=== PATIENT | male | born 1930 | race African-American/Black ===

== ENCOUNTER 2018-02-06 17:41 | Emergency (ER) | payer OTHER, MEDICAID, MEDICARE ==
[~2018-02-06] VITALS: Ht 160 cm; Wt 62.0 kg
[2018-02-06] MEDS ORDERED: SODIUM CHLORIDE 0.9% 1,000 ML IV ONE (18:04)
[2018-02-06] MEDS ORDERED: KETOROLAC 30MG/ML VIAL IV STA (18:04)
[2018-02-06 20:51] LABS: HEMATOCRIT. 40.4 % (42.0-52.0); MEAN CORPUSCULAR HEMOGLOBIN 29.8 pg (28.0-32.0); MEAN CORPUSCULAR VOLUME 92.2 fL (80.0-94.0); MEAN PLATELET VOLUME 10.5 fl (7.4-10.4); PLATELET 177 x1000/uL (130-400); RED BLOOD CELL COUNT 4.38 mill/uL (4.7-6.1); RED CELL DISTRIBUTION WIDTH 14.6 % (11.6-14.6)
[2018-02-06 20:52] LABS: CLARITY URINE CLEAR (CLEAR); COLOR URINE YELLOW (YELLOW); KETONES URINE NEGATIVE (NEGATIVE); LEUKOCYTE ESTERASE URINE TRACE (NEGATIVE); NITRITE URINE NEGATIVE (NEGATIVE); OCCULT BLOOD URINE NEGATIVE (NEGATIVE); PH URINE 5.5 (4.5-8.0); PROTEIN URINE NEGATIVE (NEGATIVE); SPECIFIC GRAVITY URINE 1.019 (1.005-1.030)
[2018-02-06 20:54] LABS: CHLORIDE 103 mEq/L (98-107)
[2018-02-06 20:56] LABS: INR 1.1
[2018-02-06 21:54] LABS: PLATELET ESTIMATE NORMAL
[2018-02-06 22:45] VITALS: BP 164/89
== END 2018-02-06 23:22 | disposition home or self-care (01) ==
LOC: ER 17:41
DX: K43.9 Ventral hernia without obstruction or gangrene (principal); K40.90 Unilateral inguinal hernia, without obstruction or gangrene, not specified as recurrent; E11.9 Type 2 diabetes mellitus without complications; D72.829 Elevated white blood cell count, unspecified; J45.909 Unspecified asthma, uncomplicated
CPT/HCPCS: 36415; 74176; 80053; 81003; 83690; 85025; 85610; 96374; 99284; J1885; J7030

== ENCOUNTER 2018-03-14 22:51 | Inpatient (IN) | payer OTHER, MEDICAID ==
[~2018-03-14] VITALS: Ht 170.2 cm; Wt 56.7 kg
[2018-03-14] MEDS ORDERED: ONDANSETRON HCL 4MG/2ML INJ IV STA (23:55)
[2018-03-14] MEDS ORDERED: SODIUM CHLORIDE 0.9% 1,000 ML IV ONE (23:55)
[2018-03-15] MEDS ORDERED: MORPHINE SULFATE 10 MG/ML CPJ IV ONE
[2018-03-15 00:48] LABS: BASOPHILS % 0.7 % (0.0-2.0); EOSINOPHILS % 1.5 % (0.0-5.0); HEMATOCRIT. 38.2 % (42.0-52.0); HEMOGLOBIN. 12.5 g/dL (14.0-18.0); LYMPHOCYTES % 11.9 % (20.0-50.0); MEAN CORPUSCULAR HEMOGLOBIN 30.2 pg (28.0-32.0); MEAN CORPUSCULAR VOLUME 91.9 fL (80.0-94.0); MEAN PLATELET VOLUME 10.9 fl (7.4-10.4); MONOCYTES % 11.4 % (2.0-8.0); NEUTROPHILS % 74.5 % (40.0-76.0); PLATELET 176 x1000/uL (130-400); RED BLOOD CELL COUNT 4.15 mill/uL (4.7-6.1); RED CELL DISTRIBUTION WIDTH 13.9 % (11.6-14.6)
[2018-03-15 00:50] LABS: INR 1.1
[2018-03-15 00:52] LABS: CHLORIDE 101 mEq/L (98-107)
[2018-03-15] MEDS ORDERED: IOHEXOL-300 100 ML BOTTLE ONE (03:29)
[2018-03-15] MEDS ORDERED: SODIUM CHLORIDE 0.9% 1,000 ML IV SCH (10:59)
[2018-03-15] MEDS ORDERED: LORAZEPAM 2MG/ML CPJ IV PRN ×2 (11:00→23:15)
[2018-03-15] MEDS ORDERED: HYDROCODONE/ACETAMINOPHEN 5/325MG TABLET PO PRN ×2 (11:00→23:15)
[2018-03-15] MEDS ORDERED: MORPHINE SULFATE 4 MG/ML CPJ (NOT FOR IM USE) IV PRN ×2 (11:00→23:15)
[2018-03-15] MEDS ORDERED: ACETAMINOPHEN 325MG TABLET PO PRN ×2 (11:00→23:15)
[2018-03-15 18:34] LABS: CREATINE KINASE 74 IU/L (39-308)
[2018-03-15 18:35] LABS: CREATINE KINASE MB FRACTION 2.4 ng/mL (0.5-3.6)
[2018-03-15 21:00] VITALS: BP 170/79
[2018-03-15 21:22] VITALS: BP 170/79
[2018-03-15] MEDS ORDERED: IPRATROPIUM/ALBUTEROL 0.5-3(2.5)MG/3ML NEB INH PRN (23:15)
[2018-03-15] MEDS ORDERED: ONDANSETRON HCL 4MG/2ML INJ IV PRN (23:15)
[2018-03-15] MEDS ORDERED: CLONIDINE 0.1MG TABLET PO PRN (23:15)
[2018-03-15 23:42] LABS: CREATINE KINASE 83 IU/L (39-308)
[2018-03-15 23:43] LABS: CREATINE KINASE MB FRACTION 2.5 ng/mL (0.5-3.6)
[2018-03-15] MEDS: LISINOPRIL 20MG TABLET PO SCH (23:55)
[2018-03-16] VITALS (7 sets, daily range): BP systolic 104–194; BP diastolic 70–89
[2018-03-16] MEDS: LACTULOSE 20G/30ML UDC PO SCH ×2 (06:45→13:16)
[2018-03-16] MEDS: LISINOPRIL 20MG TABLET PO SCH (08:49)
[2018-03-16] MEDS ORDERED: FOLIC ACID 1MG TABLET PO SCH (09:00)
[2018-03-16] MEDS ORDERED: ASPIRIN 81MG EC TABLET PO SCH (09:00)
[2018-03-16] MEDS ORDERED: AMLODIPINE 5MG TABLET PO SCH (09:00)
[2018-03-16] MEDS ORDERED: ENOXAPARIN 40MG/0.4ML SYR SUBCUT SCH (09:00)
[2018-03-16] MEDS ORDERED: LOSA100T14 MT (11:45)
[2018-03-16] MEDS ORDERED: ATEN100T MT (11:45)
[2018-03-16] MEDS ORDERED: TAMS0.4C31 MT (11:46)
[2018-03-16] MEDS ORDERED: FURO40TA5 MT (11:52)
[2018-03-16] MEDS ORDERED: OMEP20CA10 MT (11:52)
[2018-03-16] MEDS ORDERED: ALBU90AE INH (11:52)
[2018-03-16 15:51] LABS: HEMATOCRIT. 39.7 % (42.0-52.0); HEMOGLOBIN. 12.9 g/dL (14.0-18.0); MEAN CORPUSCULAR HEMOGLOBIN 30.2 pg (28.0-32.0); MEAN CORPUSCULAR VOLUME 92.7 fL (80.0-94.0); MEAN PLATELET VOLUME 11.1 fl (7.4-10.4); PLATELET 163 x1000/uL (130-400); RED BLOOD CELL COUNT 4.28 mill/uL (4.7-6.1); RED CELL DISTRIBUTION WIDTH 13.8 % (11.6-14.6)
[2018-03-16 15:55] LABS: CHLORIDE 106 mEq/L (98-107)
[2018-03-16 16:27] LABS: PLATELET ESTIMATE NORMAL
[2018-03-17] MEDS ORDERED: LISINOPRIL 20MG TABLET PO SCH (09:00)
== END 2018-03-16 18:49 | disposition home or self-care (01) | DRG 394 ==
LOC: ER 22:51 → 5WST 03-15 02:53 → EDBEDREQTM 03-15 02:54 → EDBEDREQ 03-15 02:54 → SUPCPDRO 03-15 10:58 → ENRESERV 03-15 19:33
PROVIDERS: ADMIT Internal Medicine Nephrology; ATTEND Internal Medicine Nephrology
DX: K40.90 Unilateral inguinal hernia, without obstruction or gangrene, not specified as recurrent (principal); Z68.1 Body mass index [BMI] 19.9 or less, adult; D64.9 Anemia, unspecified; I10 Essential (primary) hypertension; K59.00 Constipation, unspecified; E11.9 Type 2 diabetes mellitus without complications; I25.2 Old myocardial infarction
CPT/HCPCS: 36415; 71045; 74177; 80048; 82550; 82553; 82962; 83605; 84153; 84484; 93005; 93306; 96374; 96375; 97162; 99284; 99285; J1650; J2060; J2270; J2405; J7030; Q9967; G0103

== ENCOUNTER 2018-09-24 02:41 | Inpatient (IN) | payer OTHER, MEDICAID ==
[~2018-09-24] VITALS: Ht 170.2 cm; Wt 58.6 kg
[2018-09-24] VITALS (8 sets, daily range): BP systolic 114–169; BP diastolic 56–91
[~2018-09-24 02:41] MED LIST: ALBU90AE INH; ATEN100T MT; FURO40TA5 MT; LOSA100T32 MT; OMEP20CA5 MT; TAMS0.4C31 MT
[2018-09-24] MEDS ORDERED: METHYLPREDNISOLONE SOD SUCC 125 MG/2 ML VIAL IV STA (02:46)
[2018-09-24] MEDS ORDERED: IPRATROPIUM BROMIDE (0.02%) 0.5MG/2.5ML NEB HHN STA (02:46)
[2018-09-24] MEDS ORDERED: ALBUTEROL (0.083%) 2.5MG/3ML NEB HHN STA (02:46)
[2018-09-24] MEDS ORDERED: SODIUM CHLORIDE 0.9% 1,000 ML IV ONE (02:46)
[2018-09-24 03:02] LABS: EOSINOPHILS % 4.7 % (0.0-5.0); HEMOGLOBIN. 13.4 g/dL (14.0-18.0); LYMPHOCYTES % 21.9 % (20.0-50.0); MEAN CORPUSCULAR HEMOGLOBIN 30.4 pg (28.0-32.0); MEAN CORPUSCULAR VOLUME 92.7 fL (80.0-94.0); MONOCYTES % 12.9 % (2.0-8.0); NEUTROPHILS % 59.5 % (40.0-76.0); PLATELET 183 x1000/uL (130-400); RED BLOOD CELL COUNT 4.42 mill/uL (4.7-6.1); RED CELL DISTRIBUTION WIDTH 14.5 % (11.6-14.6)
[2018-09-24 03:09] LABS: CHLORIDE 104 mEq/L (98-107)
[2018-09-24] MEDS ORDERED: TRAMADOL 50MG TABLET PO PRN (06:30)
[2018-09-24] MEDS ORDERED: NITROGLYCERIN 0.4MG TABLET SL SL PRN (06:30)
[2018-09-24] MEDS ORDERED: ONDANSETRON HCL 4MG/2ML INJ IV PRN (06:30)
[2018-09-24] MEDS ORDERED: GUAIFENESIN 200MG/10ML SUGAR FREE UDC PO PRN (06:30)
[2018-09-24] MEDS ORDERED: CLONIDINE 0.1MG TABLET PO PRN (06:30)
[2018-09-24] MEDS ORDERED: IPRATROPIUM/ALBUTEROL 0.5-3(2.5)MG/3ML NEB INH PRN (06:30)
[2018-09-24] MEDS ORDERED: MAGNESIUM/ALUMINUM HYDROXIDE/SIMETHICONE 30ML UDC PO PRN (06:30)
[2018-09-24] MEDS ORDERED: ACETAMINOPHEN 325MG TABLET PO PRN (06:30)
[2018-09-24 07:15] LABS: TOTAL IRON BINDING CAPACITY 214 ug/dL (250-450)
[2018-09-24] MEDS: ASPIRIN 325MG EC TABLET PO SCH (10:00)
[2018-09-24] MEDS: AMLODIPINE 10MG TABLET PO SCH (10:00)
[2018-09-24] MEDS: GUAIFENESIN/DM 600MG/30MG ER TAB 12HR PO SCH ×2 (10:00→20:25)
[2018-09-24] MEDS: LISINOPRIL 20MG TABLET PO SCH ×2 (10:00→20:35)
[2018-09-24] MEDS: ASCORBIC ACID 500 MG TABLET PO SCH ×2 (10:01→20:35)
[2018-09-24] MEDS: FAMOTIDINE 20MG TABLET PO SCH (10:01)
[2018-09-24] MEDS: ENOXAPARIN 40MG/0.4ML SYR SUBCUT SCH (10:03)
[2018-09-24] MEDS ORDERED: LEVOFLOXACIN 500MG PREMIX 100 ML IV SCH (11:00)
[2018-09-24 11:05] LABS: BG BASE EXCESS 2.6 mmol/L (-2.0-2.0); BG BILEVEL POS AIRWAY PRESSURE ST=15/5; BG CARBOXYHEMOGLOBIN 0.4 % (0.5-1.5); BG DEOXYHEMOGLOBIN 1.1 % (0.0-5.0); BG FRACTION INSPIRED OXYGEN 40; BG HCO3 ACT 30.8 mmol/L (22.0-26.0); BG METHEMOGLOBIN 0.3 % (0.0-1.5); BG OXYGEN SATURATION 98.9 % (92.0-98.5); BG OXYHEMOGLOBIN 98.2 % (94.0-97.0); BG PCO2 65.1 mmHg (35.0-45.0); BG PH 7.293 (7.350-7.450); BG PO2 171.2 mmHg (75.0-100.0); BG PRESSURE SUPPORT 10; BG SAMPLE SITE LEFT BRACHIAL; BG TOTAL HEMOGLOBIN 13.2 g/dL (12.0-18.0); BG VENT MODE MASK - BIPAP; BG VENT RATE 14 set
[2018-09-24] MEDS: METHYLPREDNISOLONE SOD SUCC 125 MG/2 ML VIAL IV SCH ×2 (14:08→22:29)
[2018-09-24 15:37] LABS: BG BASE EXCESS 1.6 mmol/L (-2.0-2.0); BG BILEVEL POS AIRWAY PRESSURE 15/5; BG CARBOXYHEMOGLOBIN 0.9 % (0.5-1.5); BG DEOXYHEMOGLOBIN 0.9 % (0.0-5.0); BG HCO3 ACT 30.1 mmol/L (22.0-26.0); BG METHEMOGLOBIN 0.4 % (0.0-1.5); BG OXYGEN SATURATION 99.1 % (92.0-98.5); BG OXYHEMOGLOBIN 97.8 % (94.0-97.0); BG PCO2 65.7 mmHg (35.0-45.0); BG PH 7.279 (7.350-7.450); BG PO2 186.8 mmHg (75.0-100.0); BG SAMPLE SITE RIGHT RADIAL; BG TOTAL HEMOGLOBIN 13.8 g/dL (12.0-18.0); BG VENT MODE MASK - BIPAP; BG VENT RATE 14 set
[2018-09-24 16:02] LABS: CREATINE KINASE 111 IU/L (39-308)
[2018-09-24 16:03] LABS: CREATINE KINASE MB FRACTION 2.5 ng/mL (0.5-3.6)
[2018-09-24] MEDS: IPRATROPIUM/ALBUTEROL 0.5-3(2.5)MG/3ML NEB HHN SCH (20:45)
[2018-09-24] MEDS ORDERED: ZOLPIDEM TARTRATE 5MG TABLET PO PRN (21:00)
[2018-09-25] VITALS (17 sets, daily range): BP systolic 96–143; BP diastolic 35–76
[2018-09-25] MEDS: IPRATROPIUM/ALBUTEROL 0.5-3(2.5)MG/3ML NEB HHN SCH ×6 (00:21→21:20)
[2018-09-25 00:39] LABS: CREATINE KINASE 83 IU/L (39-308)
[2018-09-25 00:40] LABS: CREATINE KINASE MB FRACTION 2.1 ng/mL (0.5-3.6)
[2018-09-25] MEDS: METHYLPREDNISOLONE SOD SUCC 125 MG/2 ML VIAL IV SCH ×3 (05:38→21:42)
[2018-09-25 08:42] LABS: BG BASE EXCESS 2.4 mmol/L (-2.0-2.0); BG BILEVEL POS AIRWAY PRESSURE 18/5; BG CARBOXYHEMOGLOBIN 0.8 % (0.5-1.5); BG DEOXYHEMOGLOBIN 0.9 % (0.0-5.0); BG FRACTION INSPIRED OXYGEN 40; BG HCO3 ACT 31.5 mmol/L (22.0-26.0); BG METHEMOGLOBIN 0.2 % (0.0-1.5); BG OXYGEN SATURATION 99.1 % (92.0-98.5); BG OXYHEMOGLOBIN 98.1 % (94.0-97.0); BG PCO2 71.1 mmHg (35.0-45.0); BG PH 7.264 (7.350-7.450); BG PO2 175.1 mmHg (75.0-100.0); BG SAMPLE SITE RIGHT RADIAL; BG TOTAL HEMOGLOBIN 13.6 g/dL (12.0-18.0); BG VENT MODE MASK - BIPAP; BG VENT RATE 16 set
[2018-09-25] MEDS: ASPIRIN 325MG EC TABLET PO SCH (08:55)
[2018-09-25] MEDS: ASCORBIC ACID 500 MG TABLET PO SCH ×2 (08:55→21:42)
[2018-09-25] MEDS: FAMOTIDINE 20MG TABLET PO SCH (08:55)
[2018-09-25] MEDS: AMLODIPINE 10MG TABLET PO SCH (08:55)
[2018-09-25] MEDS: LISINOPRIL 20MG TABLET PO SCH ×2 (08:55→21:00)
[2018-09-25] MEDS: GUAIFENESIN/DM 600MG/30MG ER TAB 12HR PO SCH ×2 (08:55→21:42)
[2018-09-25] MEDS: ENOXAPARIN 40MG/0.4ML SYR SUBCUT SCH (08:56)
[2018-09-25] MEDS: LEVOFLOXACIN 250MG PREMIX 50 ML IV SCH (10:55)
[2018-09-25] MEDS ORDERED: DEXTROSE 50% WATER 50ML SYRINGE IV PRN (13:45)
[2018-09-25] MEDS: BLOOD SUGAR DIAGNOSTIC STRIP TEST SCH ×2 (17:30→21:47)
[2018-09-25] MEDS: INSULIN LISPRO 100 UNITS/ML SUBCUT SCH ×2 (18:00→22:49)
[2018-09-25 21:19] LABS: BG BASE EXCESS 1.8 mmol/L (-2.0-2.0); BG BILEVEL POS AIRWAY PRESSURE 18/5; BG CARBOXYHEMOGLOBIN 0.1 % (0.5-1.5); BG DEOXYHEMOGLOBIN 3.2 % (0.0-5.0); BG FRACTION INSPIRED OXYGEN 30; BG HCO3 ACT 30.1 mmol/L (22.0-26.0); BG METHEMOGLOBIN 0.5 % (0.0-1.5); BG OXYGEN SATURATION 96.8 % (92.0-98.5); BG OXYHEMOGLOBIN 96.2 % (94.0-97.0); BG PCO2 65.9 mmHg (35.0-45.0); BG PH 7.278 (7.350-7.450); BG PO2 95.4 mmHg (75.0-100.0); BG SAMPLE SITE RIGHT RADIAL; BG TOTAL HEMOGLOBIN 12.6 g/dL (12.0-18.0); BG VENT MODE MASK - BIPAP
[2018-09-26] VITALS (15 sets, daily range): BP systolic 107–136; BP diastolic 42–71
[2018-09-26] MEDS: IPRATROPIUM/ALBUTEROL 0.5-3(2.5)MG/3ML NEB HHN SCH ×6 (00:19→20:23)
[2018-09-26] MEDS: METHYLPREDNISOLONE SOD SUCC 125 MG/2 ML VIAL IV SCH ×3 (05:36→21:14)
[2018-09-26] MEDS: BLOOD SUGAR DIAGNOSTIC STRIP TEST SCH ×4 (07:30→21:15)
[2018-09-26] MEDS: INSULIN LISPRO 100 UNITS/ML SUBCUT SCH ×4 (08:00→21:49)
[2018-09-26] MEDS: FAMOTIDINE 20MG TABLET PO SCH (09:11)
[2018-09-26] MEDS: GUAIFENESIN/DM 600MG/30MG ER TAB 12HR PO SCH ×2 (09:11→21:14)
[2018-09-26] MEDS: ASPIRIN 325MG EC TABLET PO SCH (09:11)
[2018-09-26] MEDS: ENOXAPARIN 40MG/0.4ML SYR SUBCUT SCH (09:11)
[2018-09-26] MEDS: ASCORBIC ACID 500 MG TABLET PO SCH ×2 (09:11→21:13)
[2018-09-26] MEDS: AMLODIPINE 10MG TABLET PO SCH (09:11)
[2018-09-26] MEDS: LISINOPRIL 20MG TABLET PO SCH ×2 (09:12→21:14)
[2018-09-26 10:45] LABS: BG BASE EXCESS 2.2 mmol/L (-2.0-2.0); BG CARBOXYHEMOGLOBIN 0.2 % (0.5-1.5); BG DEOXYHEMOGLOBIN 1.7 % (0.0-5.0); BG FRACTION INSPIRED OXYGEN 32; BG HCO3 ACT 30.6 mmol/L (22.0-26.0); BG METHEMOGLOBIN 0.4 % (0.0-1.5); BG OXYGEN SATURATION 98.3 % (92.0-98.5); BG OXYHEMOGLOBIN 97.7 % (94.0-97.0); BG PH 7.284 (7.350-7.450); BG PO2 131.6 mmHg (75.0-100.0); BG SAMPLE SITE RIGHT RADIAL; BG TOTAL HEMOGLOBIN 13.3 g/dL (12.0-18.0); BG VENT MODE NASAL CANNULA
[2018-09-26] MEDS: LEVOFLOXACIN 250MG PREMIX 50 ML IV SCH (11:58)
[2018-09-26] MEDS ORDERED: OMEP20CA5 MT (15:18)
[2018-09-26] MEDS ORDERED: AMLO5TAB88 MT (15:18)
[2018-09-26] MEDS ORDERED: LOSA100T32 MT (15:18)
[2018-09-26] MEDS ORDERED: FURO40TA5 MT (15:18)
[2018-09-26] MEDS ORDERED: ATEN100T MT (15:18)
[2018-09-27] VITALS (12 sets, daily range): BP systolic 101–162; BP diastolic 36–85
[2018-09-27] MEDS: IPRATROPIUM/ALBUTEROL 0.5-3(2.5)MG/3ML NEB HHN SCH ×6 (00:05→20:08)
[2018-09-27] MEDS: METHYLPREDNISOLONE SOD SUCC 125 MG/2 ML VIAL IV SCH ×2 (06:22→14:16)
[2018-09-27] MEDS: BLOOD SUGAR DIAGNOSTIC STRIP TEST SCH ×4 (07:30→21:14)
[2018-09-27] MEDS: INSULIN LISPRO 100 UNITS/ML SUBCUT SCH ×4 (08:00→21:15)
[2018-09-27 08:59] LABS: BG BASE EXCESS 6.8 mmol/L (-2.0-2.0); BG BILEVEL POS AIRWAY PRESSURE ST=18/5; BG CARBOXYHEMOGLOBIN 0.4 % (0.5-1.5); BG DEOXYHEMOGLOBIN 3.6 % (0.0-5.0); BG FRACTION INSPIRED OXYGEN 28; BG HCO3 ACT 35.2 mmol/L (22.0-26.0); BG METHEMOGLOBIN 0.2 % (0.0-1.5); BG OXYGEN SATURATION 96.4 % (92.0-98.5); BG OXYHEMOGLOBIN 95.8 % (94.0-97.0); BG PCO2 69.8 mmHg (35.0-45.0); BG PH 7.321 (7.350-7.450); BG PO2 87.9 mmHg (75.0-100.0); BG PRESSURE SUPPORT 13; BG SAMPLE SITE LEFT BRACHIAL; BG TOTAL HEMOGLOBIN 13.4 g/dL (12.0-18.0); BG VENT MODE MASK - BIPAP; BG VENT RATE 16 set
[2018-09-27] MEDS: AMLODIPINE 10MG TABLET PO SCH (09:00)
[2018-09-27] MEDS: LISINOPRIL 20MG TABLET PO SCH ×2 (09:00→21:00)
[2018-09-27] MEDS: ASPIRIN 325MG EC TABLET PO SCH (09:10)
[2018-09-27] MEDS: GUAIFENESIN/DM 600MG/30MG ER TAB 12HR PO SCH ×2 (09:10→21:14)
[2018-09-27] MEDS: FAMOTIDINE 20MG TABLET PO SCH (09:11)
[2018-09-27] MEDS: ASCORBIC ACID 500 MG TABLET PO SCH ×2 (09:11→21:14)
[2018-09-27] MEDS: ENOXAPARIN 40MG/0.4ML SYR SUBCUT SCH (09:54)
[2018-09-27] MEDS: LEVOFLOXACIN 250MG TABLET PO SCH (11:54)
[2018-09-27 16:07] LABS: HEMATOCRIT. 40.7 % (42.0-52.0); HEMOGLOBIN. 12.9 g/dL (14.0-18.0); MEAN CORPUSCULAR HEMOGLOBIN 29.9 pg (28.0-32.0); MEAN CORPUSCULAR VOLUME 94.1 fL (80.0-94.0); MEAN PLATELET VOLUME 11.1 fl (7.4-10.4); PLATELET 194 x1000/uL (130-400); RED BLOOD CELL COUNT 4.32 mill/uL (4.7-6.1); RED CELL DISTRIBUTION WIDTH 14.3 % (11.6-14.6)
[2018-09-27 16:08] LABS: CHLORIDE 103 mEq/L (98-107)
[2018-09-27] MEDS ORDERED: TERBUTALINE SULFATE 1MG/ML VIAL SUBCUT NR (16:15)
[2018-09-27 16:38] LABS: PLATELET ESTIMATE NORMAL
[2018-09-27 17:16] LABS: *AMPHETAMINES SCREEN URINE NEGATIVE (NEGATIVE); *BARBITURATES SCREEN URINE NEGATIVE (NEGATIVE); *BENZODIAZEPINES SCREEN URINE NEGATIVE (NEGATIVE); *COCAINE SCREEN URINE NEGATIVE (NEGATIVE)
[2018-09-27 17:17] LABS: CANNABINOID URINE SCREEN NEGATIVE (NEGATIVE); METHADONE URINE SCREEN NEGATIVE (NEGATIVE); OPIATES URINE SCREEN NEGATIVE (NEGATIVE); PHENCYCLIDINE URINE SCREEN NEGATIVE (NEGATIVE)
[2018-09-27] MEDS: METHYLPREDNISOLONE SOD SUCC 40 MG/ML VIAL IV SCH (21:14)
[2018-09-28] VITALS (11 sets, daily range): BP systolic 109–140; BP diastolic 49–62
[2018-09-28] MEDS: IPRATROPIUM/ALBUTEROL 0.5-3(2.5)MG/3ML NEB HHN SCH ×4 (00:43→16:34)
[2018-09-28] MEDS: METHYLPREDNISOLONE SOD SUCC 40 MG/ML VIAL IV SCH (06:31)
[2018-09-28] MEDS: INSULIN LISPRO 100 UNITS/ML SUBCUT SCH ×3 (08:00→18:25)
[2018-09-28 08:01] LABS: BG BASE EXCESS 5.8 mmol/L (-2.0-2.0); BG BILEVEL POS AIRWAY PRESSURE ST=20/5; BG CARBOXYHEMOGLOBIN 0.6 % (0.5-1.5); BG DEOXYHEMOGLOBIN 2.1 % (0.0-5.0); BG FRACTION INSPIRED OXYGEN 28; BG HCO3 ACT 33.1 mmol/L (22.0-26.0); BG METHEMOGLOBIN 0.3 % (0.0-1.5); BG OXYGEN SATURATION 97.9 % (92.0-98.5); BG PO2 102.7 mmHg (75.0-100.0); BG PRESSURE SUPPORT 15; BG SAMPLE SITE LEFT BRACHIAL; BG VENT MODE MASK - BIPAP; BG VENT RATE 18 set
[2018-09-28] MEDS: BLOOD SUGAR DIAGNOSTIC STRIP TEST SCH ×3 (08:02→18:24)
[2018-09-28] MEDS: ASCORBIC ACID 500 MG TABLET PO SCH (08:40)
[2018-09-28] MEDS: ASPIRIN 325MG EC TABLET PO SCH (08:40)
[2018-09-28] MEDS: AMLODIPINE 10MG TABLET PO SCH (08:40)
[2018-09-28] MEDS: FAMOTIDINE 20MG TABLET PO SCH (08:40)
[2018-09-28] MEDS: GUAIFENESIN/DM 600MG/30MG ER TAB 12HR PO SCH (08:40)
[2018-09-28] MEDS: LISINOPRIL 20MG TABLET PO SCH (08:41)
[2018-09-28] MEDS: LEVOFLOXACIN 250MG TABLET PO SCH (10:23)
[2018-09-28] MEDS: ENOXAPARIN 40MG/0.4ML SYR SUBCUT SCH (10:24)
[2018-09-29] MEDS ORDERED: PREDNISONE 20MG TABLET PO SCH (08:00)
== END 2018-09-28 19:28 | disposition home health service (06) | DRG 189 ==
LOC: ER 03:08 → 5EST 03:50 → SUPCPDRO 06:20 → ENRESERV 07:03
PROVIDERS: ADMIT Internal Medicine; ATTEND Internal Medicine
PROC: 5A09457 Assistance with Respiratory Ventilation, 24-96 Consecutive Hours, Continuous Positive Airway Pressure (ICD-10-PCS; principal; 2018-09-24)
PROC: 5A09357 Assistance with Respiratory Ventilation, Less than 24 Consecutive Hours, Continuous Positive Airway Pressure (ICD-10-PCS; 2018-09-25)
DX: J96.02 Acute respiratory failure with hypercapnia (principal); E43 Unspecified severe protein-calorie malnutrition; J44.1 Chronic obstructive pulmonary disease with (acute) exacerbation; E87.2 Acidosis; N40.0 Benign prostatic hyperplasia without lower urinary tract symptoms; I10 Essential (primary) hypertension; E11.9 Type 2 diabetes mellitus without complications; D63.8 Anemia in other chronic diseases classified elsewhere; Z68.20 Body mass index [BMI] 20.0-20.9, adult; Z79.899 Other long term (current) drug therapy; Z87.891 Personal history of nicotine dependence; Z79.51 Long term (current) use of inhaled steroids
CPT/HCPCS: 36415; 36600; 71045; 78582; 80048; 80061; 80305; 82375; 82550; 82553; 82607; 82746; 82805; 82962; 83036; 83540; 83550; 83605; 83880; 84484; 85379; 93005; 93970; 94640; 94660; 96374; 97110; 97116; 97162; 97166; 97530; 97535; 99291; A9558; J1650; J1815; J1956; J2920; J2930; J3105; J7030; J7611; J7620

== ENCOUNTER 2018-10-09 23:31 | Inpatient (IN) | payer OTHER, MEDICAID ==
[~2018-10-09] VITALS: Ht 167.6 cm; Wt 59.4 kg
[~2018-10-09 23:31] MED LIST changes: +AMLO5TAB88 MT
[2018-10-10 00:17] LABS: HEMATOCRIT. 34.1 % (42.0-52.0); HEMOGLOBIN. 11.2 g/dL (14.0-18.0); MEAN CORPUSCULAR HEMOGLOBIN 30.5 pg (28.0-32.0); MEAN CORPUSCULAR VOLUME 93.1 fL (80.0-94.0); MEAN PLATELET VOLUME 8.5 fl (7.4-10.4); PLATELET 243 x1000/uL (130-400); RED BLOOD CELL COUNT 3.67 mill/uL (4.7-6.1); RED CELL DISTRIBUTION WIDTH 14.1 % (11.6-14.6)
[2018-10-10 00:23] LABS: CHLORIDE 105 mEq/L (98-107)
[2018-10-10 00:31] LABS: BG BILEVEL POS AIRWAY PRESSURE 15/5; BG CARBOXYHEMOGLOBIN 0.7 % (0.5-1.5); BG DEOXYHEMOGLOBIN 1.1 % (0.0-5.0); BG FRACTION INSPIRED OXYGEN 70; BG HCO3 ACT 26.9 mmol/L (22.0-26.0); BG METHEMOGLOBIN 0.4 % (0.0-1.5); BG OXYGEN SATURATION 98.9 % (92.0-98.5); BG OXYHEMOGLOBIN 97.8 % (94.0-97.0); BG PCO2 61.1 mmHg (35.0-45.0); BG PH 7.261 (7.350-7.450); BG PO2 156.6 mmHg (75.0-100.0); BG SAMPLE SITE RIGHT RADIAL; BG TOTAL HEMOGLOBIN 11.1 g/dL (12.0-18.0); BG VENT MODE MASK - BIPAP
[2018-10-10] MEDS ORDERED: ALBUTEROL (0.083%) 2.5MG/3ML NEB HHN STA (02:56)
[2018-10-10] MEDS ORDERED: IPRATROPIUM BROMIDE (0.02%) 0.5MG/2.5ML NEB HHN STA (02:56)
[2018-10-10] MEDS ORDERED: METHYLPREDNISOLONE SOD SUCC 125 MG/2 ML VIAL IV STA (02:56)
[2018-10-10] MEDS ORDERED: POTASSIUM CHLORIDE 20MEQ TABLET SR PO SCH (03:00)
[2018-10-10 04:17] LABS: PLATELET ESTIMATE NORMAL
[2018-10-10] MEDS ORDERED: GUAIFENESIN 200MG/10ML SUGAR FREE UDC PO PRN (09:00)
[2018-10-10] MEDS: IPRATROPIUM/ALBUTEROL 0.5-3(2.5)MG/3ML NEB HHN SCH ×2 (09:00→13:04)
[2018-10-10] MEDS ORDERED: DIPHENHYDRAMINE 50MG/ML VIAL IV PRN (09:00)
[2018-10-10] MEDS ORDERED: IPRATROPIUM/ALBUTEROL 0.5-3(2.5)MG/3ML NEB HHN PRN (09:00)
[2018-10-10] MEDS ORDERED: ACETAMINOPHEN 650MG/20.3ML UDC GT PRN (09:00)
[2018-10-10] MEDS ORDERED: NA PHOS,M-B/NA PHOS,DI-BA ENEMA 118ML PR PRN (09:00)
[2018-10-10] MEDS ORDERED: ACETAMINOPHEN 325MG TABLET PO PRN (09:00)
[2018-10-10] MEDS ORDERED: ONDANSETRON HCL 4MG/2ML INJ IV PRN (09:00)
[2018-10-10] MEDS ORDERED: ACETAMINOPHEN 650MG SUPP PR PRN (09:00)
[2018-10-10] MEDS ORDERED: CLONIDINE 0.1MG TABLET PO PRN (09:00)
[2018-10-10] MEDS ORDERED: MAGNESIUM/ALUMINUM HYDROXIDE/SIMETHICONE 30ML UDC PO PRN (09:00)
[2018-10-10] MEDS ORDERED: DOCUSATE SODIUM 100MG CAPSULE PO PRN (09:00)
[2018-10-10] MEDS ORDERED: HYDROCODONE/ACETAMINOPHEN 5/325MG TABLET PO PRN (09:00)
[2018-10-10] MEDS ORDERED: DEXTROSE 50% WATER 50ML SYRINGE IV PRN (09:00)
[2018-10-10] MEDS: ENOXAPARIN 40MG/0.4ML SYR SUBCUT SCH (09:46)
[2018-10-10] MEDS: BLOOD SUGAR DIAGNOSTIC STRIP TEST SCH ×2 (09:46→13:47)
[2018-10-10] MEDS: METHYLPREDNISOLONE SOD SUCC 125 MG/2 ML VIAL IV SCH ×2 (09:47→15:00)
[2018-10-10] MEDS ORDERED: IPRATROPIUM/ALBUTEROL 0.5-3(2.5)MG/3ML NEB ONE (13:03)
[2018-10-10] MEDS: INSULIN LISPRO 100 UNITS/ML SUBCUT SCH ×2 (13:20→21:00)
[2018-10-10] MEDS: SODIUM CHLORIDE 0.9% INJ 3ML FLUSH IVF SCH (14:00)
[2018-10-10 21:35] VITALS: BP 146/62
[2018-10-10 22:00] VITALS: BP 146/62
[2018-10-11] VITALS: BP 158/64
[2018-10-11] MEDS: METHYLPREDNISOLONE SOD SUCC 125 MG/2 ML VIAL IV SCH ×3 (00:20→09:20)
[2018-10-11] MEDS: SODIUM CHLORIDE 0.9% INJ 3ML FLUSH IVF SCH ×4 (00:21→21:22)
[2018-10-11] MEDS: IPRATROPIUM/ALBUTEROL 0.5-3(2.5)MG/3ML NEB HHN SCH ×4 (01:58→20:47)
[2018-10-11 04:00] VITALS: BP 135/51
[2018-10-11] MEDS: BLOOD SUGAR DIAGNOSTIC STRIP TEST SCH ×4 (06:39→21:00)
[2018-10-11] MEDS: INSULIN LISPRO 100 UNITS/ML SUBCUT SCH ×4 (06:43→21:00)
[2018-10-11 07:08] LABS: CHLORIDE 105 mEq/L (98-107)
[2018-10-11 07:10] LABS: HEMATOCRIT. 34.9 % (42.0-52.0); HEMOGLOBIN. 11.8 g/dL (14.0-18.0); MEAN CORPUSCULAR HEMOGLOBIN 31.2 pg (28.0-32.0); MEAN CORPUSCULAR VOLUME 92.2 fL (80.0-94.0); MEAN PLATELET VOLUME 9.3 fl (7.4-10.4); PLATELET 264 x1000/uL (130-400); RED BLOOD CELL COUNT 3.79 mill/uL (4.7-6.1)
[2018-10-11 07:27] LABS: LDL CHOLESTEROL 95 mg/dL (5-100)
[2018-10-11 07:28] LABS: HDL CHOLESTEROL 50 mg/dL (40-59)
[2018-10-11 08:00] VITALS: BP 135/50
[2018-10-11] MEDS: ENOXAPARIN 40MG/0.4ML SYR SUBCUT SCH (09:19)
[2018-10-11 12:00] VITALS: BP 113/89
[2018-10-11 14:21] LABS: PLATELET ESTIMATE NORMAL
[2018-10-11] MEDS: METHYLPREDNISOLONE SOD SUCC 40 MG/ML VIAL IV SCH ×2 (15:01→21:21)
[2018-10-11 16:00] VITALS: BP 165/84
[2018-10-11 20:00] VITALS: BP 162/63
[2018-10-11] MEDS ORDERED: NON FORMULARY PATIENT HOME MED XX SCH (23:30)
[2018-10-12] VITALS: BP 155/61
[2018-10-12] MEDS: IPRATROPIUM/ALBUTEROL 0.5-3(2.5)MG/3ML NEB HHN SCH ×4 (01:45→20:53)
[2018-10-12 04:00] VITALS: BP 150/74
[2018-10-12] MEDS: METHYLPREDNISOLONE SOD SUCC 40 MG/ML VIAL IV SCH ×3 (05:19→21:11)
[2018-10-12] MEDS: SODIUM CHLORIDE 0.9% INJ 3ML FLUSH IVF SCH ×3 (05:19→21:11)
[2018-10-12] MEDS: DORZOLAMIDE 2% OPHTH 10 ML BOTTLE BOTHEYE SCH ×3 (05:20→21:12)
[2018-10-12] MEDS: TRAVOPROST OP SCH ×2 (05:21→21:12)
[2018-10-12] MEDS: [UNRECOGNIZED DRUG - OTHER] OP SCH ×2 (05:21→21:12)
[2018-10-12] MEDS: BLOOD SUGAR DIAGNOSTIC STRIP TEST SCH ×4 (05:22→21:11)
[2018-10-12] MEDS: INSULIN LISPRO 100 UNITS/ML SUBCUT SCH ×4 (06:19→21:10)
[2018-10-12] MEDS ORDERED: P50 MT (07:53)
[2018-10-12 08:00] VITALS: BP 115/58
[2018-10-12] MEDS: ENOXAPARIN 40MG/0.4ML SYR SUBCUT SCH (08:12)
[2018-10-12 10:13] LABS: HEMATOCRIT. 39.7 % (42.0-52.0); HEMOGLOBIN. 12.7 g/dL (14.0-18.0); MEAN CORPUSCULAR VOLUME 93.5 fL (80.0-94.0); MEAN PLATELET VOLUME 9.5 fl (7.4-10.4); PLATELET 273 x1000/uL (130-400); RED BLOOD CELL COUNT 4.25 mill/uL (4.7-6.1); RED CELL DISTRIBUTION WIDTH 14.1 % (11.6-14.6)
[2018-10-12 10:21] LABS: CHLORIDE 101 mEq/L (98-107)
[2018-10-12 12:00] VITALS: BP 124/50
[2018-10-12 15:48] LABS: PLATELET ESTIMATE NORMAL
[2018-10-12 16:00] VITALS: BP 136/67
[2018-10-12 20:00] VITALS: BP 167/68
[2018-10-13] VITALS: BP 161/69
[2018-10-13] MEDS: IPRATROPIUM/ALBUTEROL 0.5-3(2.5)MG/3ML NEB HHN SCH (00:44)
[2018-10-13 04:00] VITALS: BP 171/80
[2018-10-13] MEDS: METHYLPREDNISOLONE SOD SUCC 40 MG/ML VIAL IV SCH (06:32)
[2018-10-13] MEDS: SODIUM CHLORIDE 0.9% INJ 3ML FLUSH IVF SCH (06:33)
[2018-10-13] MEDS: DORZOLAMIDE 2% OPHTH 10 ML BOTTLE BOTHEYE SCH (06:34)
[2018-10-13] MEDS: BLOOD SUGAR DIAGNOSTIC STRIP TEST SCH (06:34)
[2018-10-13] MEDS: INSULIN LISPRO 100 UNITS/ML SUBCUT SCH (06:35)
[2018-10-13 08:00] VITALS: BP 161/61
[2018-10-13] MEDS: ENOXAPARIN 40MG/0.4ML SYR SUBCUT SCH (09:20)
[2018-10-13 09:32] VITALS: BP 161/61
[2018-10-14] MEDS ORDERED: FLUT12AE7 INH (13:45)
[2018-10-14] MEDS ORDERED: TRAV2.5D EACHEYE (13:45)
[2018-10-14] MEDS ORDERED: DORZ10DR9 EACHEYE (13:45)
== END 2018-10-13 11:13 | disposition home or self-care (01) | DRG 190 ==
LOC: ER 23:31 → 5WST 10-10 02:59 → EDBEDREQDT 10-10 03:01 → EDBEDREQTM 10-10 03:01 → EDBEDREQ 10-10 03:01 → ENRESERV 10-10 20:25
PROVIDERS: ADMIT Family Medicine; ATTEND Family Medicine
PROC: 5A09357 Assistance with Respiratory Ventilation, Less than 24 Consecutive Hours, Continuous Positive Airway Pressure (ICD-10-PCS; principal; 2018-10-09)
DX: J44.1 Chronic obstructive pulmonary disease with (acute) exacerbation (principal); J96.01 Acute respiratory failure with hypoxia; J96.02 Acute respiratory failure with hypercapnia; E44.1 Mild protein-calorie malnutrition; I50.42 Chronic combined systolic (congestive) and diastolic (congestive) heart failure; I11.0 Hypertensive heart disease with heart failure; E87.5 Hyperkalemia; E11.9 Type 2 diabetes mellitus without complications; D64.9 Anemia, unspecified; K21.9 Gastro-esophageal reflux disease without esophagitis; E78.5 Hyperlipidemia, unspecified; N40.0 Benign prostatic hyperplasia without lower urinary tract symptoms; Z79.899 Other long term (current) drug therapy; Z87.891 Personal history of nicotine dependence; Z68.21 Body mass index [BMI] 21.0-21.9, adult
CPT/HCPCS: 36415; 36600; 71045; 80061; 82375; 82805; 82962; 83880; 84484; 93005; 94640; 94660; 97162; 99291; J1650; J1815; J2920; J2930; J7611; J7620

== ENCOUNTER 2018-10-13 18:14 | Inpatient (IN) | payer OTHER, MEDICAID ==
[~2018-10-13] VITALS: Ht 170.2 cm; Wt 55.3 kg
[~2018-10-13 18:14] MED LIST changes: +P50 MT
[2018-10-14 11:42] LABS: BASOPHILS % 0.3 % (0.0-2.0); HEMATOCRIT. 42.5 % (42.0-52.0); HEMOGLOBIN. 13.9 g/dL (14.0-18.0); LYMPHOCYTES % 8.3 % (20.0-50.0); MEAN CORPUSCULAR HEMOGLOBIN 30.2 pg (28.0-32.0); MEAN CORPUSCULAR VOLUME 92.7 fL (80.0-94.0); MEAN PLATELET VOLUME 9.2 fl (7.4-10.4); MONOCYTES % 13.7 % (2.0-8.0); NEUTROPHILS % 76.7 % (40.0-76.0); PLATELET 242 x1000/uL (130-400); RED BLOOD CELL COUNT 4.59 mill/uL (4.7-6.1); RED CELL DISTRIBUTION WIDTH 13.9 % (11.6-14.6)
[2018-10-14 11:47] LABS: CHLORIDE 94 mEq/L (98-107)
[2018-10-14] MEDS ORDERED: FLUT12AE7 INH (13:45)
[2018-10-14] MEDS ORDERED: TRAV2.5D EACHEYE (13:45)
[2018-10-14] MEDS ORDERED: DORZ10DR9 EACHEYE (13:45)
[2018-10-14] MEDS ORDERED: NON FORMULARY PATIENT HOME MED XX SCH (13:45)
[2018-10-14] MEDS ORDERED: AMLODIPINE 5MG TABLET PO ONE (13:45)
[2018-10-14 14:38] VITALS: BP 170/73
[2018-10-14 16:00] VITALS: BP 138/87
[2018-10-14] MEDS: TAMSULOSIN HCL 0.4MG SR CAPSULE PO SCH (16:42)
[2018-10-14] MEDS: AMLODIPINE 5MG TABLET PO SCH (16:42)
[2018-10-14 20:00] VITALS: BP 133/57
[2018-10-14] MEDS: DORZOLAM/TIMOLOL 2.23/0.68% OPHTH DROPS 10ML EACHEYE SCH (21:57)
[2018-10-14] MEDS ORDERED: ACETAMINOPHEN 325MG TABLET PO PRN (23:15)
[2018-10-14] MEDS ORDERED: GUAIFENESIN 200MG/10ML SUGAR FREE UDC PO PRN (23:15)
[2018-10-14] MEDS ORDERED: ONDANSETRON HCL 4MG/2ML INJ IV PRN (23:15)
[2018-10-14] MEDS ORDERED: MAGNESIUM/ALUMINUM HYDROXIDE/SIMETHICONE 30ML UDC PO PRN (23:15)
[2018-10-14] MEDS ORDERED: DIPHENHYDRAMINE 50MG/ML VIAL IV PRN (23:15)
[2018-10-14] MEDS ORDERED: DOCUSATE SODIUM 100MG CAPSULE PO PRN (23:15)
[2018-10-14] MEDS ORDERED: ACETAMINOPHEN 650MG/20.3ML UDC GT PRN (23:15)
[2018-10-14] MEDS ORDERED: HYDROCODONE/ACETAMINOPHEN 5/325MG TABLET PO PRN (23:15)
[2018-10-14] MEDS ORDERED: IPRATROPIUM/ALBUTEROL 0.5-3(2.5)MG/3ML NEB HHN PRN (23:15)
[2018-10-14] MEDS ORDERED: ACETAMINOPHEN 650MG SUPP PR PRN (23:15)
[2018-10-14] MEDS ORDERED: NA PHOS,M-B/NA PHOS,DI-BA ENEMA 118ML PR PRN (23:15)
[2018-10-15] VITALS (8 sets, daily range): BP systolic 114–165; BP diastolic 55–74
[2018-10-15] MEDS: SODIUM CHLORIDE 0.9% INJ 3ML FLUSH IVF SCH ×2 (05:54→13:28)
[2018-10-15] MEDS: CLONIDINE 0.1MG TABLET PO PRN ×2 (06:13→13:28)
[2018-10-15 07:03] LABS: BASOPHILS % 0.2 % (0.0-2.0); EOSINOPHILS % 3.6 % (0.0-5.0); HEMATOCRIT. 40.1 % (42.0-52.0); HEMOGLOBIN. 13.1 g/dL (14.0-18.0); LYMPHOCYTES % 10.6 % (20.0-50.0); MEAN CORPUSCULAR HEMOGLOBIN 30.4 pg (28.0-32.0); MEAN CORPUSCULAR VOLUME 93.1 fL (80.0-94.0); MEAN PLATELET VOLUME 9.4 fl (7.4-10.4); MONOCYTES % 12.8 % (2.0-8.0); NEUTROPHILS % 72.8 % (40.0-76.0); PLATELET 216 x1000/uL (130-400); RED BLOOD CELL COUNT 4.31 mill/uL (4.7-6.1); RED CELL DISTRIBUTION WIDTH 13.8 % (11.6-14.6)
[2018-10-15 08:12] LABS: CHLORIDE 97 mEq/L (98-107)
[2018-10-15 08:20] LABS: LDL CHOLESTEROL 110 mg/dL (5-100)
[2018-10-15 08:21] LABS: HDL CHOLESTEROL 51 mg/dL (40-59)
[2018-10-15] MEDS ORDERED: LOSARTAN POTASSIUM 100 MG TABLET PO SCH (09:00)
[2018-10-15] MEDS ORDERED: ATENOLOL 100 MG TABLET PO SCH (09:00)
[2018-10-15] MEDS: AMLODIPINE 5MG TABLET PO SCH (09:22)
[2018-10-15] MEDS: TAMSULOSIN HCL 0.4MG SR CAPSULE PO SCH (09:22)
[2018-10-15] MEDS: DORZOLAM/TIMOLOL 2.23/0.68% OPHTH DROPS 10ML EACHEYE SCH ×2 (09:23→16:49)
[2018-10-15] MEDS ORDERED: FUROSEMIDE 40MG TABLET PO SCH (16:30)
[2018-10-15] MEDS: IPRATROPIUM/ALBUTEROL 0.5-3(2.5)MG/3ML NEB HHN SCH ×2 (19:07→21:09)
== END 2018-10-15 22:07 | DRG 189 ==
LOC: ER 18:14 → 6EST 10-14 11:16 → ENRESERV 10-14 11:58
PROVIDERS: ADMIT Family Medicine; ATTEND Family Medicine
DX: J96.01 Acute respiratory failure with hypoxia (principal); E44.1 Mild protein-calorie malnutrition; I50.32 Chronic diastolic (congestive) heart failure; Z68.1 Body mass index [BMI] 19.9 or less, adult; J44.9 Chronic obstructive pulmonary disease, unspecified; J96.02 Acute respiratory failure with hypercapnia; I11.0 Hypertensive heart disease with heart failure; E11.9 Type 2 diabetes mellitus without complications; D63.8 Anemia in other chronic diseases classified elsewhere; K21.9 Gastro-esophageal reflux disease without esophagitis; N40.0 Benign prostatic hyperplasia without lower urinary tract symptoms; Z79.899 Other long term (current) drug therapy
CPT/HCPCS: 36415; 71045; 80061; 93005; 94640; 99285; J7620